=== PATIENT | male | born 1975 | race Caucasian/White ===

== ENCOUNTER 2022-11-16 03:59 | Emergency (ER) | payer BC, SELFPAY ==
--- NOTE | ~2022-11-16 | XR_ITS ---
Clinical Indication: Chest pain PA and lateral views of the chest: Comparison: None Findings: The lungs are clear, without evidence of focal consolidation or pleural effusion. Cardiome diastinal silhouette is within normal limits. Bones and soft tissues are unremarkable. Impression: Normal chest. Reviewed, dictated and finalized at location . ESS EQUIPMENT OPERATOR Impression: Normal chest.
--- NOTE | 2022-11-16 04:00 | ECG_ITS ---
Measurements Intervals [place] Rate: 81 P: 56 [place]: 183 QRS: 32 QRSD: 113 T: 31 QT: 366 QTc: 426 Interpretive Statements SINUS RHYTHM POSSIBLE INFERIOR MYOCARDIAL INFARCTION , OF INDETERMINATE AGE WITH POSTERIOR EXTENSION [30 ms Q WAVE IN II/aVFPROMINENT R WAV ABNORMAL ECG NO PREVIOUS ECG AVAILABLE FOR COMPARISON Electronically Signed On 11-16-2022 14:10:58 LABOR RELATIONS CONSULTANT by Amaury Beltran M.D.
[2022-11-16 04:01] VITALS: BP 134/104; PULSE 86; RESP 16; O2SAT 96
[2022-11-16 04:16] VITALS: PULSE 82
--- NOTE | 2022-11-16 04:19 | ED.GENADULT ---
HPI - General Adult General Chief complaint: Chest Pain Stated complaint: cp Time Seen by Provider: 11/16/22 04:16 History of Present Illness HPI narrative: Patient is a 47-year-old gentleman who presents emergency department with chief complaint of chest tightness patient reports that around 9 PM he had an episode where he felt some fullness in his chest. Patient states it resolved and then he went to sleep and woke up and had some tightness in his chest. 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 The patient states he is currently pain-free Related Data Allergies Allergy/AdvReac Type Severity Reaction Status Date / Time azithromycin Allergy Other Verified 11/16/22 04:50 Review of Systems Review of Systems: A 10 system review of systems was completed on the patient and is negative except for what is stated in the HPI. Nursing and ancillary documentation was reviewed. Exam Narrative: GENERAL: Well-appearing, well-nourished, and in no acute distress. HEAD: Normocephalic, atraumatic. EYES: PERRLA and EOMI. ENT: Nares clear, no rhinorrhea or epistaxis. Mucous membranes moist. NECK: Supple. CHEST: Clear to auscultation. No respiratory distress. HEART: Regular rate and rhythm. No murmur heard. Normal peripheral pulses. ABDOMEN: Soft, nontender, nondistended, normal active bowel sounds. EXTREMITIES: Normal range of motion. No edema. SKIN: Warm, dry, no rash. NEURO: No focal deficits. Alert and oriented x3. PSYCH: Normal mood and affect. Course Vital Signs Vital signs: Vital Signs Pulse Rate 86 11/16/22 04:01 Respiratory Rate 16 11/16/22 04:01 Blood Pressure 134/104 H 11/16/22 04:01 Pulse Oximetry 96 11/16/22 04:01 Oxygen Delivery Room Air 11/16/22 04:01 Pulse Rate 82 11/16/22 04:16 Respiratory Rate 16 11/16/22 04:01 Blood Pressure 134/104 H 11/16/22 04:01 Pulse Oximetry 96 11/16/22 04:01 Oxygen Delivery Room Air 11/16/22 04:01 Medical Decision Making [facility] Narrative Medical decision making narrative: Differential diagnosis includes ACS, SVT, dysrhythmia reflux, pneumothorax, EKG is sinus rhythm rate of [address] elevation or ST depression Laboratory studies were obtained on the patient which showed 2 negative troponins liver enzymes are within normal limits chest x-ray showed no focal infiltrate. Vital Signs Vital Signs: Vital Signs Pulse Rate 86 11/16/22 04:01 Respiratory Rate 16 11/16/22 04:01 Blood Pressure 134/104 H 11/16/22 04:01 Pulse Oximetry 96 11/16/22 04:01 Oxygen Delivery Room Air 11/16/22 04:01 Pulse Rate 82 11/16/22 04:16 Respiratory Rate 16 11/16/22 04:01 Blood Pressure 134/104 H 11/16/22 04:01 Pulse Oximetry 96 11/16/22 04:01 Oxygen Delivery Room Air 11/16/22 04:01 Lab Data 11/16/22 04:19 11/16/22 04:19 Labs: Lab Results 11/16/22 11/16/22 11/16/22 Range/Units 04:19 04:19 04:19 WBC 5.8 (4.5-10.0) K/mm3 RBC 5.32 (4.6-6.20) M/mm3 Hgb 15.9 (14.0-18.0) g/dL Hct 45.7 (42.0-52.0) % MCV 85.9 (80-100) fl MCH 29.9 (26-34) pg MCHC 34.8 (32-36) g/dl RDW 12.8 (11.5-14.5) % Plt Count 250 (150-375) k/mm3 MPV 10.2 (7.4-10.4) fl Immature Gran % (Auto) 0.2 (0-0.5) % Neut % (Auto) 44.9 L (45.5-73.1) % Lymph % (Auto) 40.1 (18.3-44.2) % [place] % (Auto) 10.3 H (2.6-8.5) % Eos % (Auto) 3.8 (0-4.4) % Baso % (Auto) 0.7 (0.2-1.2) % Lymph # (Auto) 2.33 (0.9-3.2) K/mm3 [place] # (Auto) 0.6 (0.1-0.6) K/mm3 Eos # (Auto) 0.2 (0-0.3) K/mm3 Baso # (Auto) 0.0 (0.0-0.1) K/mm3 Abs Immat Gran (auto) 0.01 (0.00-0.031) K/mm3 Absolute N
[2022-11-16 04:24] LABS: Basophils Percent Auto 0.7 % (0.2-1.2); Eosinophils Absolute Auto 0.2 K/mm3 (0-0.3); Eosinophils Percent Auto 3.8 % (0-4.4); Hematocrit 45.7 % (42.0-52.0); Hemoglobin 15.9 g/dL (14.0-18.0); Immature Granulocyte Absolute 0.01 K/mm3 (0.00-0.031); Immature Granulocyte Percent A 0.2 % (0-0.5); Lymphocytes Absolute Auto 2.33 K/mm3 (0.9-3.2); Lymphocytes Percent Auto 40.1 % (18.3-44.2); Mean Corpuscular HGB Conc 34.8 g/dl (32-36); Mean Corpuscular Hemoglobin 29.9 pg (26-34); Mean Corpuscular Volume 85.9 fl (80-100); Mean Platelet Volume 10.2 fl (7.4-10.4); Monocytes Absolute Auto 0.6 K/mm3 (0.1-0.6); Monocytes Percent Auto 10.3 % (2.6-8.5); Neutrophils Absolute Auto 2.6 K/mm3 (1.3-6.7); Neutrophils Percent Auto 44.9 % (45.5-73.1); Platelet Count Result 250 k/mm3 (150-375); Red Blood Count 5.32 M/mm3 (4.6-6.20); Red Cell Distribution Width 12.8 % (11.5-14.5); White Blood Count 5.8 K/mm3 (4.5-10.0)
[2022-11-16 04:33] LABS: Magnesium 1.9 mg/dL (1.6-2.3)
[2022-11-16 04:36] LABS: INR 0.9; Prothrombin Time 12.2 Seconds (11.1-14.7)
[2022-11-16 04:37] LABS: Partial Thromboplastin Time 24.8 SECONDS (22.3-36.8)
[2022-11-16 04:44] LABS: Alanine Aminotransferase 42 U/L (6-50); Albumin Level 4.9 g/dL (3.5-5.1); Alkaline Phosphatase 82 U/L (38-126); Anion Gap 9 mmol/L (8-16); Aspartate Amino Transferase 32 U/L (17-59); Bilirubin,Total 0.6 mg/dL (0.2-1.3); Blood Urea Nitrogen 21 mg/dL (9-20); Calcium 9.5 mg/dL (8.4-10.2); Carbon Dioxide 26 mmol/L (22-30); Chloride 100 mmol/L (98-107); Estimated CRCL calculation 92 ml/min; Estimated Glomerular Filt Rate > 60; Glucose 108 mg/dL (65-110); Lipase 182 U/L (23-300); Potassium 3.3 mmol/L (3.4-5.0); Sodium 135 mmol/L (137-145)
[2022-11-16] MEDS: ASPIRIN 81 MG CHEWABLE TABLET 243 MG PO (04:51)
[2022-11-16 04:55] LABS: Troponin I < 0.012 ng/mL (0.000-0.034)
[2022-11-16 07:19] LABS: Troponin I < 0.012 ng/mL (0.000-0.034)
[2022-11-16 07:45] VITALS: BP 120/84; PULSE 80; RESP 16; O2SAT 94
== END 2022-11-16 07:45 | disposition home or self-care (01) ==
PROVIDERS: Emergency Provider Emergency Medicine; PCP Family Medicine
DX: R07.89 Other chest pain (principal); R94.31 Abnormal electrocardiogram [ECG] [EKG]
CPT/HCPCS: 36415; 71046; 80053; 83690; 83735; 84484; 85025; 85610; 85730; 93005; 99284; A9270